=== PATIENT | female | born 1990 | race African-American/Black ===

== ENCOUNTER 2023-02-28 02:48 | Emergency (ER) | payer MEDICAID ==
[~2023-02-28] VITALS: Ht 175.3 cm; Wt 82.0 kg
[~2023-02-28 02:48] MED LIST: FLUT1DIS3 IH; INSNOV SUBCUT; LEVVL SUBCUT; MONT-46 PO
[2023-02-28] MEDS ORDERED: ONDANSETRON HCL 4MG/2ML INJ IV STA (03:30)
[2023-02-28] MEDS ORDERED: SODIUM CHLORIDE 0.9% 1,000 ML IV ONE (03:30)
[2023-02-28] MEDS ORDERED: FAMOTIDINE 20MG/2ML VIAL IV ONE (03:45)
[2023-02-28 04:39] LABS: BASOPHILS % 0.6 % (0.0-2.0); EOSINOPHILS % 0.2 % (0.0-5.0); HEMATOCRIT. 39.8 % (36.0-48.0); HEMOGLOBIN. 13.8 g/dL (12.0-16.0); LYMPHOCYTES % 8.9 % (20.0-50.0); MEAN CORPUSCULAR HEMOGLOBIN 30.2 pg (28.0-32.0); MEAN PLATELET VOLUME 9.8 fl (7.4-10.4); MONOCYTES % 6.2 % (2.0-8.0); NEUTROPHILS % 84.1 % (40.0-76.0); PLATELET 297 x1000/uL (130-400); RED BLOOD CELL COUNT 4.57 mill/uL (4.2-5.4); RED CELL DISTRIBUTION WIDTH 12.8 % (11.6-14.6)
[2023-02-28 04:52] LABS: CHLORIDE 109 mEq/L (98-107)
[2023-02-28 05:00] LABS: BETA HYDROXYBUTYRATE 0.2 mMol/L (0.0-0.3)
[2023-02-28 05:33] LABS: CLARITY URINE CLEAR (CLEAR); COLOR URINE YELLOW (YELLOW); KETONES URINE 2+ (NEGATIVE); LEUKOCYTE ESTERASE URINE NEGATIVE (NEGATIVE); NITRITE URINE NEGATIVE (NEGATIVE); OCCULT BLOOD URINE NEGATIVE (NEGATIVE); PROTEIN URINE 2+ (NEGATIVE); SPECIFIC GRAVITY URINE 1.021 (1.005-1.030); UROBILINOGEN URINE 0.2 E.U./dL (0.2-1.0)
[2023-02-28] MEDS ORDERED: ONDA4TAB11 PO (05:43)
[2023-02-28] MEDS ORDERED: FAMO-135 MT (05:43)
[2023-02-28 06:41] VITALS: BP 121/61
== END 2023-02-28 06:55 | disposition home or self-care (01) ==
LOC: ER 02:51
DX: R11.10 Vomiting, unspecified (principal); R53.1 Weakness; E10.9 Type 1 diabetes mellitus without complications; J45.909 Unspecified asthma, uncomplicated; Z79.4 Long term (current) use of insulin
CPT/HCPCS: 36415; 80053; 81003; 82010; 83690; 85025; 96374; 96375; 99284; J2405; J3490; J7030; Z7610